=== PATIENT | male | born 1965 | race Caucasian/White ===

== ENCOUNTER 2021-10-15 00:14 | Day surgery (SDC) | payer OTHER, SELFPAY ==
[2021-09-24 14:19] VITALS: BMI 28.0
--- NOTE | 2021-10-13 20:44 | PM.HPGS ---
History of Present Illness History of Present Illness Consent: Risks, benefits, and alternatives have been discussed and questions answered. Patient agrees to proceed with procedure. Chief complaint: family hx of colon polyps Narrative: Mathew Duenas III is a 56 year old male with a family history of polyps referred for colon cancer screening Review of Systems Review of Systems: All systems reviewed & are unremarkable except as noted in HPI and below PMFSH Past Medical History Medical History Coronary artery disease Essential hypertension HSV-2 (herpes simplex virus 2) infection HTN (hypertension) Hyperlipidemia Surgical History Surgical History History of cardiac cath History of vasectomy Family History Family History Father Diabetes mellitus Malignant neoplasm of prostate Sibling Patient's sister is in good health Patient's brother is in good health Daughter Neuroblastoma Social History Social History Smoking status: Former smoker Smoking end date: 08/16/17 Alcohol intake: current Alcohol use details: 2 beers and 2 glasses of wine/week Meds Home Medications and Allergies Home Medications Medication Instructions Recorded Confirmed Type aspirin 325 mg tablet 325 mg PO DAILY 02/29/20 09/24/21 History nitroglycerin 0.4 mg sublingual 0.4 mg SUBLINGUAL Q5M PRN 02/29/20 09/24/21 History tablet niacin 1,000 mg tablet,extended 1,000 mg PO .qhs #30 tablet 06/10/20 09/24/21 Rx release 24 hr atorvastatin 40 mg tablet 40 mg PO DAILY #90 tablet 07/29/20 09/24/21 Rx rosuvastatin 40 mg PO DAILY 09/24/21 09/24/21 History valacyclovir [Valtrex] 500 mg PO DAILY 09/24/21 09/24/21 History metoprolol succinate 25 mg 25 mg PO DAILY #90 tablet 10/01/21 10/15/21 Rx tablet,extended release 24 hr Allergies Allergy/AdvReac Type Severity Reaction Status Date / Time No Known Drug Allergies Allergy Mild Unknown Verified 10/15/21 08:38 Exam Resp: Auscultation: clear to auscultation bilaterally Cardio: Rate: regular rate Rhythm: regular rhythm GI: GI Palp: Yes Soft to palpation and No Tenderness to palpation present (GI) Assessment and Plan Assessment and plan (1) Screening for colon cancer: Code(s): Z12.11 - Encounter for screening for malignant neoplasm of colon Status: Acute Assessment and Plan: Colonoscopy with possible biopsy or polypectomy or cautery or injection of substances.
[2021-10-15 08:39] VITALS: BP 118/80; PULSE 63; RESP 20; TEMP 36.4; O2SAT 98; BMI 26.6
[2021-10-15] MEDS: LACTATED RINGERS 1,000 ML 150 ML IV CONT (08:49)
--- NOTE | 2021-10-15 10:02 | WPDANESEPPF ---
Anes - Initial Pre Proc Eval Procedure: Operation Date: 10/15/21 10:00 Proposed Procedures p Screening Colonoscopy - Bear Harmon MD Date/Time: 10/15/21 10:02 Surgeon: Bear Harmon MD Pre Op Diagnosis: family hx of colon polyps Patient Data Age: 56 Gender: M Height: 1.93 m Weight: 99.1 kg Last Vital Signs Temp 97.6 F 10/15/21 08:39 Pulse 63 10/15/21 08:39 Resp 20 10/15/21 08:39 BP 118/80 10/15/21 08:39 Pulse Ox 98 10/15/21 08:39 Allergies Allergy/AdvReac Type Severity Reaction Status Date / Time No Known Drug Allergies Allergy Mild Unknown Verified 10/15/21 08:38 Home Medications Medication Instructions Recorded Confirmed Type aspirin 325 mg tablet 325 mg PO DAILY 02/29/20 09/24/21 History nitroglycerin 0.4 mg sublingual 0.4 mg SUBLINGUAL Q5M PRN 02/29/20 09/24/21 History tablet niacin 1,000 mg tablet,extended 1,000 mg PO .qhs #30 tablet 06/10/20 09/24/21 Rx release 24 hr atorvastatin 40 mg tablet 40 mg PO DAILY #90 tablet 07/29/20 09/24/21 Rx rosuvastatin 40 mg PO DAILY 09/24/21 09/24/21 History valacyclovir [Valtrex] 500 mg PO DAILY 09/24/21 09/24/21 History metoprolol succinate 25 mg 25 mg PO DAILY #90 tablet 10/01/21 10/15/21 Rx tablet,extended release 24 hr Patient hx anesthesia problems: none Family hx anesthesia problems: none Results Review: All pre-operative results and documents have been reviewed as part of the pre-operative evaluation. [facility] Past Medical History Medical History Coronary artery disease Essential hypertension HSV-2 (herpes simplex virus 2) infection HTN (hypertension) Hyperlipidemia Surgical History Surgical History History of cardiac cath History of vasectomy Family History Family History Father Diabetes mellitus Malignant neoplasm of prostate Sibling Patient's sister is in good health Patient's brother is in good health Daughter Neuroblastoma Social History Social History Smoking status: Former smoker Smoking end date: 08/16/17 Alcohol intake: current Alcohol use details: 2 beers and 2 glasses of wine/week Anes - Eval Final PreProcedure Day of Procedure 10/15/21 10:02 Patient weight: overweight Heart: regular rate and rhythm Lungs: clear to auscultation Airway: Mallampati scale class II Neurological: alert and oriented Last oral intake: >/= 8 hours ASA classification: III Emergent: no Anesthetic plan: proceed Anesthesia type and monitoring: general GIVS and standard monitoring Results Review: All pre-operative results and documents have been reviewed as part of the pre-operative evaluation. Informed Consent: The patient's anesthetic plan and its attendant risks and benefits were discussed with the patient/family/POA. Questions were solicited and answers provided to the satisfaction of the patient/family/POA.
[2021-10-15 10:25] VITALS: BP 106/77; PULSE 59; RESP 13; O2SAT 97
[2021-10-15 10:35] VITALS: BP 118/88; PULSE 59; RESP 16; O2SAT 99
[2021-10-15 10:45] VITALS: BP 128/83; PULSE 65; RESP 15; O2SAT 99
== END 2021-10-15 10:58 | disposition home or self-care (01) ==
PROVIDERS: PCP Internal Medicine; Visit Provider Internal Medicine Gastroenterology
PROC: 0DJD8ZZ Inspection of Lower Intestinal Tract, Via Natural or Artificial Opening Endoscopic (ICD-10-PCS; CPT 45378; principal; 2021-10-15 10:00)
DX: Z12.11 Encounter for screening for malignant neoplasm of colon (principal); Z83.71 Family history of colonic polyps; I25.10 Atherosclerotic heart disease of native coronary artery without angina pectoris; I10 Essential (primary) hypertension; E78.5 Hyperlipidemia, unspecified; B00.9 Herpesviral infection, unspecified; Z79.82 Long term (current) use of aspirin; Z87.891 Personal history of nicotine dependence
CPT/HCPCS: 45378; J2001; J2704; J7120

== ENCOUNTER 2022-12-03 12:41 | Outpatient (CLI) | payer OTHER, SELFPAY ==
[2022-12-03 19:46] LABS: Kit Draw Collected
== END 2022-12-03 12:42 | disposition home or self-care (01) ==
LOC: ANHGOSHLAB 12:43
PROVIDERS: PCP Internal Medicine; Visit Provider Clinical Nurse Specialist
DX: Z12.5 Encounter for screening for malignant neoplasm of prostate (principal); I10 Essential (primary) hypertension
CPT/HCPCS: 36415

== ENCOUNTER 2023-02-12 14:38 | Emergency (ER) | payer OTHER, SELFPAY ==
--- NOTE | ~2023-02-12 | XR_ITS ---
EXAMINATION: [id number] INDICATION: Right rib pain TECHNIQUE: A frontal view of the chest and 3 views of the right ribs were obtained. COMPARISON: None. FINDINGS: The lungs are free of acute opacities. No pleural effusion or pneumothorax. The cardiomedia stinal silhouette is normal. The visualized bones and soft tissues are unremarkable. No displaced rib fracture is identified. IMPRESSION: 1. No acute cardiopulmonary abnormality or evidence of displaced rib fracture. Reviewed, dictated and finalized at location B.
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
[2023-02-12 14:50] VITALS: BP 112/89; PULSE 76; RESP 16; TEMP 36.6; O2SAT 96
[2023-02-12 14:51] VITALS: BP 112/89; PULSE 76; RESP 16; TEMP 36.6; O2SAT 96
[2023-02-12] MEDS: TETANUS,DIPHTHERIA,AC PERTUSSIS ADULT (0.5 ML) BOOSTRIX IM (15:13)
== END 2023-02-12 15:37 | disposition home or self-care (01) ==
PROVIDERS: Emergency Provider Nurse Practitioner Family; PCP Internal Medicine
DX: S20.211A Contusion of right front wall of thorax, initial encounter (principal); I25.10 Atherosclerotic heart disease of native coronary artery without angina pectoris; I10 Essential (primary) hypertension; E78.5 Hyperlipidemia, unspecified; Z79.82 Long term (current) use of aspirin; Z23 Encounter for immunization; Z87.891 Personal history of nicotine dependence; V19.9XXA Pedal cyclist (driver) (passenger) injured in unspecified traffic accident, initial encounter
CPT/HCPCS: 71101; 90471; 90715; 99213; G0463